=== PATIENT | male | born 1950 | race Caucasian/White ===

== ENCOUNTER → 2023-04-16 | Outpatient (REF) | payer MEDICARE ==
[~2023-04-16] MED LIST: IOPAMIDOL 370 MG/ML 100 ML INFUS..BTL INJ ONE; IOPAMIDOL 610MG/1ML 300 MG/ML VIAL IV ONE
[2023-04-16 09:50] LABS: CREATININE, SERUM 0.92 mg/dL (0.72-1.25)
== END ==
LOC: NM 08:46
PROVIDERS: ATTEND Urology
DX: C61 Malignant neoplasm of prostate (principal)
CPT/HCPCS: 36415; 71046; 74177; 78306; 82565; 84520; A9503; Q9967